=== PATIENT | female | born 1965 | race Caucasian/White ===

== ENCOUNTER 2021-11-03 11:10 | Outpatient (CLI) | payer BC | END 2021-11-03 11:11 | disposition home or self-care (01) | LOC: CSHRAD 11:10 | PROVIDERS: ATTEND Internal Medicine Hematology & Oncology | DX: C22.1 Intrahepatic bile duct carcinoma (principal) | CPT/HCPCS: 93005; 93010 ==

== ENCOUNTER 2022-02-19 00:18 | Inpatient (IN) | payer BC ==
[2022-02-19] MEDS ORDERED: Fentanyl 100 MCG/2 ML VIAL ONE (01:03)
[2022-02-19] MEDS ORDERED: Ondansetron PF 4 MG/2 ML Vial ONE ×2 (01:03→01:06)
[2022-02-19] MEDS ORDERED: Calcium Carbonate 500 MG ChewTAB PO PRN (01:16)
[2022-02-19] MEDS ORDERED: Bisacodyl 10 MG SUPP PR PRN (01:16)
[2022-02-19] MEDS ORDERED: Senokot S 8.6-50 MG TAB PO PRN (01:16)
[2022-02-19] MEDS ORDERED: Guaifenesin DM 100-10/5 ML UDCUP PO PRN (01:16)
[2022-02-19] MEDS ORDERED: Acetaminophen 325 MG TAB PO PRN (01:16)
[2022-02-19] MEDS ORDERED: Bisacodyl 5 MG TAB PO PRN (01:16)
[2022-02-19 01:21] LABS: Base Excess (BEa) -10.5 mEq/L (-2.0 to +3.0); CO2 Tension 27.1 mmHg (35.0-45.0); Calcium, Ionized (arterial) 0.99 mmol/L (1.12-1.30); Carboxyhemoglobin (COHb) 0.2 gm% (0.0-3.0); Hemoglobin (Hb) 11.6 g/dL (12.0-16.0); O2 Tension (PaO2), arterial 77.7 mmHg (80.0-100.0); Potassium - ABG Lab 5.8 mmol/L (3.70-5.30); Puncture Site RRA; pH, Arterial 7.33 (7.35-7.45)
[2022-02-19 01:25] LABS: ALV-art Gradient 38.155 mmHg (0-20)
[2022-02-19] MEDS ORDERED: Dextrose 5 % And 0.9 % NaCl 1,000 ML IV SCH (01:30)
[2022-02-19 01:32] LABS: Hemoglobin 12.1 g/dL (12.0-15.5); Mean Corpuscular HGB CONC 33.3 g/dL (32.0-36.0); Mean Corpuscular Hemoglobin 32.3 pg (27.0-33.0); Mean Corpuscular Volume 96.8 fl (81.6-98.3); Mean Platelet Volume 11.3 fl (7.4-10.4); Platelet Count 244 10x3/uL (150-450); RBC Distribution Width 22.1 % (11.5-14.5); Red Blood Cell (RBC) Count 3.75 10x6/uL (3.90-5.03); White Blood Cell (WBC) Count 38.9 10x3/uL (3.5-10.5)
[2022-02-19 01:34] LABS: ALT (SGPT) 131 U/L (8-55); AST (SGOT) 842 U/L (5-34); Albumin 2.5 g/dL (3.5-5.0); Alkaline Phosphatase 1059 U/L (40-110); Anion Gap 28 mmol/L (10-20); BUN (Urea Nitrogen) 106 mg/dL (9.8-20.1); Bilirubin, Total 7.7 mg/dL (0.2-1.2); Calc. Creatinine Clearance 0 mL/min (70-130); Calcium 8.4 mg/dL (7.8-10.44); Carbon Dioxide 14 mmol/L (22-29); Chloride 89 mmol/L (98-107); Globulin 3.1 g/dL (2.4-3.5); Glucose 72 mg/dL (70-105); Potassium 6.3 mmol/L (3.5-5.1); Protein, Total 5.6 g/dL (6.0-8.3); Sodium 125 mmol/L (136-145)
[2022-02-19 01:52] LABS: CK (CPK) 220 U/L (29-168); Phosphorus 7.6 mg/dL (2.3-4.7); Uric Acid 13.5 mg/dL (2.6-6.0)
[2022-02-19] MEDS ORDERED: Sodium Bicarbonate 75 MEQ in Sodium Chloride 0.45% 1,000 ML IV SCH (02:00)
[2022-02-19] MEDS ORDERED: Calcium Gluc 4.6 MEQ/10 ML (100 MG/ML) SLOW IVP SCH (02:00)
[2022-02-19] MEDS ORDERED: Albumin 25% 25 GM/100 ML BOT IVPB SCH (02:00)
[2022-02-19 02:03] LABS: MDiff Complete? YES
[2022-02-19 02:07] LABS: Band 11 % (5-11); Lymphocytes 4 % (21-51); Monocytes 6 % (0-10); Neutrophil 79 % (42-75)
[2022-02-19 02:10] LABS: Platelet Morphology Comment Appears Adequate; RBC Morphology Normal
[2022-02-19 03:05] LABS: Bilirubin 6 (Negative); Blood, Urine 25 (Negative); Clarity Cloudy (Clear); Glucose, Urine (Dipstick) Normal (Negative); Ketone, Urine Negative (Negative); Leukocyte 25 (Negative); Nitrite Positive (Negative); Protein, Urine (Dipstick) 100 mg/dl (Neg-Trace); Specific Gravity, Urine 1.025 (1.002-1.036)
[2022-02-19 03:14] LABS: Bacteria/HPF 4+ HPF (None Seen)
[2022-02-19 03:52] LABS: Legionella Urinary Ag Negative (Negative); Strep pneumo Urine Ag NEGATIVE (NEGATIVE)
[2022-02-19] MEDS ORDERED: VANCOMYCIN IVPB SCH (04:00)
[2022-02-19] MEDS ORDERED: SODIUM CHLORIDE 0.9% IVPB SCH (04:00)
[2022-02-19] MEDS: Fentanyl 100 MCG/2 ML VIAL SLOW IVP PRN ×4 (04:10→16:17)
[2022-02-19] MEDS ORDERED: Fentanyl 100 MCG/2 ML VIAL SLOW IVP SCH (05:00)
[2022-02-19] MEDS ORDERED: Meropenem 1 GM in Sodium Chloride 0.9% 100 ML IVPB SCH (06:00)
[2022-02-19] MEDS: Levothyroxine Sodium 100 MCG TAB PO SCH (06:09)
[2022-02-19 06:19] LABS: Anion Gap 25 mmol/L (10-20); BUN (Urea Nitrogen) 105 mg/dL (9.8-20.1); Calc. Creatinine Clearance 19 mL/min (70-130); Calcium 8.1 mg/dL (7.8-10.44); Carbon Dioxide 14 mmol/L (22-29); Chloride 93 mmol/L (98-107); Potassium 6.1 mmol/L (3.5-5.1); Sodium 126 mmol/L (136-145)
[2022-02-19 06:20] LABS: Lactic Acid 5.2 mmol/L (0.5-2.2)
[2022-02-19 06:21] LABS: Glucose 55 mg/dL (70-105)
[2022-02-19] MEDS: Ondansetron PF 4 MG/2 ML Vial IVP PRN (06:55)
[2022-02-19] MEDS: Heparin 5,000 UNITS/ML VIAL SC SCH ×3 (08:07→22:00)
[2022-02-19] MEDS: Famotidine/PF 20 mg/2ml Vial SLOW IVP SCH (08:08)
[2022-02-19] MEDS ORDERED: Vancomycin 1 GM in Premix Bag 1 BAG IVPB SCH (09:00)
[2022-02-19 10:13] LABS: Hemoglobin 9.9 g/dL (12.0-15.5); MDiff Complete? YES; Mean Corpuscular HGB CONC 33.7 g/dL (32.0-36.0); Mean Corpuscular Hemoglobin 32.2 pg (27.0-33.0); Mean Corpuscular Volume 95.8 fl (81.6-98.3); Mean Platelet Volume 11.2 fl (7.4-10.4); Platelet Count 198 10x3/uL (150-450); Red Blood Cell (RBC) Count 3.07 10x6/uL (3.90-5.03)
[2022-02-19 10:59] LABS: ALT (SGPT) 128 U/L (8-55); AST (SGOT) 944 U/L (5-34); Albumin 2.5 g/dL (3.5-5.0); Alkaline Phosphatase 845 U/L (40-110); Anion Gap 25 mmol/L (10-20); BUN (Urea Nitrogen) 103 mg/dL (9.8-20.1); Bilirubin, Total 6.9 mg/dL (0.2-1.2); Calc. Creatinine Clearance 19 mL/min (70-130); Calcium 7.4 mg/dL (7.8-10.44); Carbon Dioxide 13 mmol/L (22-29); Chloride 93 mmol/L (98-107); Globulin 2.1 g/dL (2.4-3.5); Glucose 71 mg/dL (70-105); Potassium 6.1 mmol/L (3.5-5.1); Protein, Total 4.6 g/dL (6.0-8.3); Sodium 125 mmol/L (136-145)
[2022-02-19 11:14] LABS: Band 7 % (5-11); Lymphocytes 9 % (21-51); Monocytes 2 % (0-10); Neutrophil 82 % (42-75)
[2022-02-19 11:16] LABS: Anisocytosis SLIGHT = 6-15 cells (100X) (0-5/hpf); Platelet Morphology Comment Appears Adequate
[2022-02-19] MEDS ORDERED: Meropenem 500 MG in Sodium Chloride 0.9% 100 ML IVPB SCH ×2 (14:00→18:00)
[2022-02-19 14:51] LABS: Hep B Surf Ag Non-Reactive S/CO (NonReactive)
[2022-02-19 15:19] LABS: HBSAg Index 0.19 S/CO (0-0.99)
[2022-02-19] MEDS ORDERED: Vancomycin 1 GM in Premix Bag 1 BAG IVPB PRN (16:21)
[2022-02-19] MEDS ORDERED: HumaLOG 300 UNITS/3 ML VIAL SC PRN (16:59)
[2022-02-19] MEDS ORDERED: Dextrose 5% in Water 1,000 ML IV PRN (16:59)
[2022-02-19] MEDS: Sodium Bicarbonate 75 MEQ in Dextrose 5 %-0.45 % NaCl 1,000 ML IV SCH (18:09)
[2022-02-19 23:01] LABS: HBSAB Concentration Less than 8.00 mIU/mL; Hep B Core Total Ab Non-Reactive (NonReactive); Hep B Core Total Index 0.12 S/CO (0-0.79); Hep B Surf AB Non-Reactive (NonReactive); Hep C IgG Ab Non-Reactive (NonReactive); Hep C Index 0.07 S/CO (0-0.79)
[2022-02-20] MEDS: Fentanyl 100 MCG/2 ML VIAL SLOW IVP PRN ×2 (02:26→15:41)
[2022-02-20] MEDS: Ondansetron PF 4 MG/2 ML Vial IVP PRN ×3 (02:27→17:24)
[2022-02-20 05:08] LABS: Lactic Acid 4.4 mmol/L (0.5-2.2)
[2022-02-20] MEDS: Levothyroxine Sodium 100 MCG TAB PO SCH (05:11)
[2022-02-20] MEDS: Meropenem 500 MG in Sodium Chloride 0.9% 100 ML IVPB SCH ×2 (05:11→17:24)
[2022-02-20 05:44] LABS: Vancomycin, Random 18.9 ug/mL (See Comment)
[2022-02-20] MEDS ORDERED: Vancomycin HCl 500 MG in Sodium Chloride 0.9% 100 ML IVPB SCH (08:45)
[2022-02-20] MEDS ORDERED: Vancomycin HCl 1.25 GM in Sodium Chloride 0.9% 250 ML 250 ML IVPB SCH (08:45)
[2022-02-20] MEDS ORDERED: Vancomycin 1 GM in Premix Bag 1 BAG IVPB SCH (08:45)
[2022-02-20] MEDS ORDERED: Vancomycin HCl 750 MG in Sodium Chloride 0.9% 250 ML 250 ML IVPB SCH (08:45)
[2022-02-20] MEDS ORDERED: HOLD VANCOMYCIN FOR LEVEL >20 FS SCH (08:45)
[2022-02-20] MEDS: Heparin 5,000 UNITS/ML VIAL SC SCH ×3 (08:50→21:44)
[2022-02-20] MEDS: Famotidine/PF 20 mg/2ml Vial SLOW IVP SCH (08:50)
[2022-02-20] MEDS: HYDROcodone/Acetaminophen 10/325 mg Tablet PO PRN ×2 (08:52→16:20)
[2022-02-20] MEDS ORDERED: FLU VACC QS2021-22(6MOS UP)/PF 60 MCG/0.5 ML SYRINGE IM ONE (09:00)
[2022-02-20] MEDS ORDERED: Albumin 25% 25 GM/100 ML BOT IVPB PRN (09:33)
[2022-02-20 10:20] LABS: Anion Gap 18 mmol/L (10-20); BUN (Urea Nitrogen) 47 mg/dL (9.8-20.1); Calc. Creatinine Clearance 35 mL/min (70-130); Calcium 8.2 mg/dL (7.8-10.44); Carbon Dioxide 23 mmol/L (22-29); Chloride 96 mmol/L (98-107); Glucose 75 mg/dL (70-105); Potassium 4.3 mmol/L (3.5-5.1); Sodium 133 mmol/L (136-145)
[2022-02-20] MEDS: Sodium Bicarbonate 75 MEQ in Dextrose 5 %-0.45 % NaCl 1,000 ML IV SCH (13:48)
[2022-02-20] MEDS ORDERED: Promethazine HCl 25 MG, Admixture Fee 1 EACH in Sodium Chloride 0.9% 50 ML IVPB PRN (17:37)
[2022-02-20] MEDS: Pantoprazole 40 MG VIAL IVP SCH (22:31)
[2022-02-21] MEDS: Meropenem 500 MG in Sodium Chloride 0.9% 100 ML IVPB SCH ×2 (05:00→17:42)
[2022-02-21 05:55] LABS: Lactic Acid 4.5 mmol/L (0.5-2.2)
[2022-02-21 05:58] LABS: ALT (SGPT) 98 U/L (8-55); AST (SGOT) 471 U/L (5-34); Albumin 2.3 g/dL (3.5-5.0); Alkaline Phosphatase 899 U/L (40-110); Anion Gap 19 mmol/L (10-20); BUN (Urea Nitrogen) 43 mg/dL (9.8-20.1); Bilirubin, Total 8.4 mg/dL (0.2-1.2); Calc. Creatinine Clearance 29 mL/min (70-130); Calcium 8.4 mg/dL (7.8-10.44); Carbon Dioxide 23 mmol/L (22-29); Chloride 96 mmol/L (98-107); Glucose 83 mg/dL (70-105); Phosphorus 6.6 mg/dL (2.3-4.7); Potassium 4.7 mmol/L (3.5-5.1); Protein, Total 4.3 g/dL (6.0-8.3); Sodium 133 mmol/L (136-145); Uric Acid 6.9 mg/dL (2.6-6.0)
[2022-02-21 06:09] LABS: Vancomycin, Random 18.5 ug/mL (See Comment)
[2022-02-21] MEDS ORDERED: Vancomycin HCl 500 MG in Sodium Chloride 0.9% 100 ML IVPB SCH (07:00)
[2022-02-21 07:03] LABS: MDiff Complete? YES
[2022-02-21 07:04] LABS: Hemoglobin 9.8 g/dL (12.0-15.5); Mean Corpuscular Hemoglobin 32.7 pg (27.0-33.0); Mean Platelet Volume 10.8 fl (7.4-10.4); Platelet Count 111 10x3/uL (150-450); RBC Distribution Width 23.1 % (11.5-14.5); White Blood Cell (WBC) Count 34.7 10x3/uL (3.5-10.5)
[2022-02-21 07:06] LABS: Band 9 % (5-11); Lymphocytes 5 % (21-51); Metamyelocyte 2 % (0-0); Monocytes 7 % (0-10); Myelocyte 1 % (0-0); Neutrophil 75 % (42-75); Reactive Lymphocytes 1 % (0-10)
[2022-02-21 07:07] LABS: Anisocytosis SLIGHT = 6-15 cells (100X) (0-5/hpf); Platelet Morphology Comment Appears Decreased; Schistocytes SLIGHT = 2-5 cells (100X) (0-1/hpf)
[2022-02-21 07:08] LABS: Macrocytosis SLIGHT = 6-15 cells (100X) (0-5/hpf)
[2022-02-21] MEDS: Levothyroxine Sodium 100 MCG TAB PO SCH (07:33)
[2022-02-21] MEDS: Pantoprazole 40 MG VIAL IVP SCH ×2 (08:25→21:28)
[2022-02-21] MEDS: Norepinephrine 8 MG/0.9% NS 250 ML IVPB SCH (11:27)
[2022-02-21] MEDS: Heparin 5,000 UNITS/ML VIAL SC SCH ×3 (11:35→20:52)
[2022-02-21] MEDS: Sodium Bicarbonate 75 MEQ in Dextrose 5 %-0.45 % NaCl 1,000 ML IV SCH (14:20)
[2022-02-21] MEDS: Hydrocortisone Sod Succ/PF 100 mg/2 ml Vial IVP SCH (21:28)
[2022-02-22] MEDS: Meropenem 500 MG in Sodium Chloride 0.9% 100 ML IVPB SCH ×2 (05:24→17:02)
[2022-02-22] MEDS: Levothyroxine Sodium 100 MCG TAB PO SCH (05:25)
[2022-02-22 06:06] LABS: Vancomycin, Random 15.8 ug/mL (See Comment)
[2022-02-22 07:37] LABS: Hemoglobin 10.6 g/dL (12.0-15.5); MDiff Complete? YES; Mean Corpuscular Hemoglobin 33.1 pg (27.0-33.0); Mean Corpuscular Volume 103.4 fl (81.6-98.3); Mean Platelet Volume 10.9 fl (7.4-10.4); Platelet Count 105 10x3/uL (150-450); RBC Distribution Width 23.4 % (11.5-14.5); White Blood Cell (WBC) Count 43.7 10x3/uL (3.5-10.5)
[2022-02-22 07:42] LABS: Anion Gap 24 mmol/L (10-20); BUN (Urea Nitrogen) 53 mg/dL (9.8-20.1); Calc. Creatinine Clearance 23 mL/min (70-130); Calcium 8.1 mg/dL (7.8-10.44); Carbon Dioxide 19 mmol/L (22-29); Chloride 96 mmol/L (98-107); Glucose 72 mg/dL (70-105); Magnesium 2.1 mg/dL (1.6-2.6); Sodium 134 mmol/L (136-145)
[2022-02-22] MEDS: Hydrocortisone Sod Succ/PF 100 mg/2 ml Vial IVP SCH ×3 (08:01→21:24)
[2022-02-22] MEDS: Pantoprazole 40 MG VIAL IVP SCH ×2 (08:01→21:25)
[2022-02-22 08:18] LABS: Band 1 % (5-11); Metamyelocyte 1 % (0-0); Nucleated RBC 3 % (0)
[2022-02-22] MEDS: Sodium Bicarbonate 75 MEQ in Dextrose 5 %-0.45 % NaCl 1,000 ML IV SCH (08:30)
[2022-02-22 08:35] LABS: Monocytes 7 % (0-10)
[2022-02-22 08:36] LABS: Anisocytosis MARKED = >30 cells (100X) (0-5/hpf); Lymphocytes 4 % (21-51); Macrocytosis MODERATE=16-30 cells (100X) (0-5/hpf); Microcytosis SLIGHT = 6-15 cells (100X) (0-5/hpf); Neutrophil 87 % (42-75)
[2022-02-22 08:37] LABS: Platelet Morphology Comment Appears Decreased; Polychromasia SLIGHT = 2-3 cells (100X) (0-2/hpf)
[2022-02-22] MEDS: Dextrose 50% Abboject 50 ML SYRINGE SLOW IVP PRN ×2 (11:10→17:32)
[2022-02-22] MEDS: Heparin 5,000 UNITS/ML VIAL SC SCH ×3 (11:35→21:24)
[2022-02-22] MEDS ORDERED: Vancomycin HCl 500 MG in Sodium Chloride 0.9% 100 ML IVPB SCH (12:00)
[2022-02-22] MEDS: Albumin 25% 25 GM/100 ML BOT IVPB PRN ×2 (13:09→13:45)
[2022-02-22] MEDS ORDERED: Vasopressin 20 UNIT, Admixture Fee 1 EACH in Sodium Chloride 0.9% 50 ML IV SCH (14:15)
[2022-02-22] MEDS: HYDROcodone/Acetaminophen 10/325 mg Tablet PO PRN (16:13)
[2022-02-22] MEDS: Ondansetron PF 4 MG/2 ML Vial IVP PRN (16:13)
[2022-02-23] MEDS: Norepinephrine 8 MG/0.9% NS 250 ML IVPB SCH (02:00)
[2022-02-23] MEDS: Meropenem 500 MG in Sodium Chloride 0.9% 100 ML IVPB SCH ×2 (05:55→17:37)
[2022-02-23] MEDS: Levothyroxine Sodium 100 MCG TAB PO SCH (05:55)
[2022-02-23] MEDS: Sodium Bicarbonate 75 MEQ in Dextrose 5 %-0.45 % NaCl 1,000 ML IV SCH (05:56)
[2022-02-23] MEDS: Hydrocortisone Sod Succ/PF 100 mg/2 ml Vial IVP SCH ×3 (08:17→20:52)
[2022-02-23] MEDS: Pantoprazole 40 MG VIAL IVP SCH ×2 (08:24→20:54)
[2022-02-23] MEDS: Heparin 5,000 UNITS/ML VIAL SC SCH (08:33)
[2022-02-23 08:43] VITALS: BMI 29.7
[2022-02-23] MEDS ORDERED: Sodium Chloride 0.9% 500 ML IV SCH (09:30)
[2022-02-23 09:43] LABS: Hemoglobin 10.4 g/dL (12.0-15.5); Mean Corpuscular HGB CONC 32.7 g/dL (32.0-36.0); Mean Corpuscular Hemoglobin 33.7 pg (27.0-33.0); Mean Corpuscular Volume 102.9 fl (81.6-98.3); Mean Platelet Volume 12.3 fl (7.4-10.4); Platelet Count 62 10x3/uL (150-450); RBC Distribution Width 24.5 % (11.5-14.5); Red Blood Cell (RBC) Count 3.09 10x6/uL (3.90-5.03); White Blood Cell (WBC) Count 43.9 10x3/uL (3.5-10.5)
[2022-02-23 09:45] LABS: MDiff Complete? YES
[2022-02-23 10:21] LABS: Band 2 % (5-11); Eosinophils 1 % (0-10); Lymphocytes 6 % (21-51); Metamyelocyte 1 % (0-0); Neutrophil 74 % (42-75)
[2022-02-23 10:22] LABS: Monocytes 15 % (0-10); Myelocyte 1 % (0-0)
[2022-02-23 10:23] LABS: Platelet Morphology Comment Appears Decreased
[2022-02-23 10:26] LABS: Macrocytosis SLIGHT = 6-15 cells (100X) (0-5/hpf)
[2022-02-23 10:27] LABS: Hypochromia SLIGHT = 6-15 cells (100X) (0-5/hpf); Polychromasia SLIGHT = 2-3 cells (100X) (0-2/hpf)
[2022-02-23 10:28] LABS: Anisocytosis MODERATE=16-30 cells (100X) (0-5/hpf)
[2022-02-23 10:41] LABS: ALT (SGPT) 54 U/L (8-55); AST (SGOT) 239 U/L (5-34); Albumin 2.6 g/dL (3.5-5.0); Alkaline Phosphatase 646 U/L (40-110); Anion Gap 25 mmol/L (10-20); BUN (Urea Nitrogen) 40 mg/dL (9.8-20.1); Bilirubin, Total 11.7 mg/dL (0.2-1.2); Calc. Creatinine Clearance 26 mL/min (70-130); Calcium 8.6 mg/dL (7.8-10.44); Carbon Dioxide 19 mmol/L (22-29); Chloride 97 mmol/L (98-107); Globulin 1.8 g/dL (2.4-3.5); Glucose 78 mg/dL (70-105); Potassium 4.7 mmol/L (3.5-5.1); Protein, Total 4.4 g/dL (6.0-8.3); Sodium 136 mmol/L (136-145)
[2022-02-23] MEDS: Dextrose 50% Abboject 50 ML SYRINGE SLOW IVP PRN (11:53)
[2022-02-23] MEDS: Albumin 25% 25 GM/100 ML BOT IVPB SCH ×3 (11:55→23:39)
[2022-02-23 18:24] VITALS: BP 123/56; TEMP 98.7
[2022-02-23] MEDS ORDERED: Apixaban 5 MG TAB PO SCH (21:00)
[2022-02-23] MEDS: Silver Sulfadiazine 50 GM TUBE TOP SCH (21:11)
[2022-02-24] MEDS ORDERED: Albuterol Sulfate 2.5 mg/3 ml Neb NEB PRN (00:02)
[2022-02-24] MEDS ORDERED: guaiFENesin 100 MG/5 ML UDCUP PO PRN (00:02)
[2022-02-24] MEDS ORDERED: Scopolamine 1.5 mg/72 hour Patch TD SCH ×2 (00:15→05:00)
[2022-02-24] MEDS ORDERED: Furosemide 20 MG/2 ML VIAL SLOW IVP SCH (00:15)
[2022-02-24] MEDS ORDERED: Sodium Bicarb 50 MEQ/50 ML VIAL IVP SCH (01:15)
[2022-02-24] MEDS: Fentanyl 100 MCG/2 ML VIAL SLOW IVP PRN ×3 (01:27→05:47)
[2022-02-24] MEDS: Dextrose 50% Abboject 50 ML SYRINGE SLOW IVP PRN (02:01)
[2022-02-24] MEDS: Lorazepam 2 MG/ML VIAL SLOW IVP PRN ×2 (04:25→05:48)
[2022-02-24] MEDS: Levothyroxine Sodium 100 MCG TAB PO SCH (06:34)
[2022-02-24] MEDS: Meropenem 500 MG in Sodium Chloride 0.9% 100 ML IVPB SCH (06:34)
[2022-02-24] MEDS: Silver Sulfadiazine 50 GM TUBE TOP SCH (10:42)
[2022-02-24] MEDS: Hydrocortisone Sod Succ/PF 100 mg/2 ml Vial IVP SCH (10:42)
[2022-02-24] MEDS: Pantoprazole 40 MG VIAL IVP SCH (10:42)
[2022-02-26 14:40] LABS: Heparin-Induced Ab (HITA) 0.14 OD (0.000-0.400)
== END 2022-02-24 09:15 | disposition expired | DRG 919 ==
LOC: CSHERS 00:18 → CSHICU 02:47
PROVIDERS: ADMIT Student in an Organized Health Care Education/Training Program; ATTEND Internal Medicine
PROC: 3E03329 Introduction of Other Anti-infective into Peripheral Vein, Percutaneous Approach (ICD-10-PCS; principal; 2022-02-19)
PROC: 3E033XZ Introduction of Vasopressor into Peripheral Vein, Percutaneous Approach (ICD-10-PCS; 2022-02-19)
PROC: 06HC33Z Insertion of Infusion Device into Right Common Iliac Vein, Percutaneous Approach (ICD-10-PCS; 2022-02-19)
PROC: B54BZZA Ultrasonography of Right Lower Extremity Veins, Guidance (ICD-10-PCS; 2022-02-19)
PROC: 5A1D70Z Performance of Urinary Filtration, Intermittent, Less than 6 Hours Per Day (ICD-10-PCS; 2022-02-20)
DX: T85.79XA Infection and inflammatory reaction due to other internal prosthetic devices, implants and grafts, initial encounter (principal); A41.9 Sepsis, unspecified organism; R65.21 Severe sepsis with septic shock; N18.6 End stage renal disease; N17.9 Acute kidney failure, unspecified; J90 Pleural effusion, not elsewhere classified; C22.1 Intrahepatic bile duct carcinoma; R64 Cachexia; E87.1 Hypo-osmolality and hyponatremia; R18.8 Other ascites; N39.0 Urinary tract infection, site not specified; I12.0 Hypertensive chronic kidney disease with stage 5 chronic kidney disease or end stage renal disease; K83.09 Other cholangitis; Z51.5 Encounter for palliative care; Z66 Do not resuscitate; E87.5 Hyperkalemia; E03.9 Hypothyroidism, unspecified; E79.0 Hyperuricemia without signs of inflammatory arthritis and tophaceous disease; E88.09 Other disorders of plasma-protein metabolism, not elsewhere classified; D63.1 Anemia in chronic kidney disease; E83.39 Other disorders of phosphorus metabolism; K21.9 Gastro-esophageal reflux disease without esophagitis; D75.82 Heparin induced thrombocytopenia (HIT); E86.0 Dehydration; Y83.8 Other surgical procedures as the cause of abnormal reaction of the patient, or of later complication, without mention of misadventure at the time of the procedure; Z20.822 Contact with and (suspected) exposure to COVID-19; Z88.5 Allergy status to narcotic agent; Z79.890 Hormone replacement therapy; Z79.899 Other long term (current) drug therapy; Z86.711 Personal history of pulmonary embolism; Z90.710 Acquired absence of both cervix and uterus; Z68.29 Body mass index [BMI] 29.0-29.9, adult
CPT/HCPCS: 36415; 36416; 36600; 51702; 71045; 71250; 74177; 80048; 80053; 80202; 81003; 81015; 82533; 82550; 82607; 82746; 82805; 83605; 83615; 83735; 83880; 84100; 84145; 84443; 84484; 84550; 85025; 86704; 86706; 86803; 87040; 87340; 87449; 87899; 90935; 93005; 93306; 93970; 94640; 94760; 96374; 96375; C9113; G0257; J0610; J1642; J1644; J1720; J1940; J2060; J2185; J2405; J2550; J3010; J3370; J3490; J7030; J7042; J7050; J7611; P9047; S0028